=== PATIENT | male | born 1965 | race Caucasian/White ===

== ENCOUNTER → 2017-04-28 | Outpatient (CLI) | payer OTHER ==
[~2017-04-28] MED LIST: ASPI81TA28 PO; HYDR-5688 PO; LISI-787 PO; OPTIRAY 320 IV PRN; PRT/20 PO
--- NOTE | 2017-04-28 13:20 | DIAGNOSTIC IMAGING REPORT ---
CT NECK WITH INTRAVENOUS CONTRAST HISTORY: LEFT NECK SWELLING TECHNIQUE: Multiaxial CT images of the neck were performed following the use of intravenous contrast. COMPARISON STUDY: None. FINDINGS: The visualized brain parenchyma and orbits are unremarkable. The pterygopalatine fossa and parapharyngeal fat spaces are maintained. Motion artifact at the oropharynx results in nondiagnostic evaluation for a mucosal lesion. There is irregularity/deformity within the supraglottic soft tissues without definite mass. This is best seen on images 181 through 200. This may be transient or related to swallowing. The trachea is midline and is patent. The major cervical vessels are widely patent. Multiple surgical clips within the right submandibular location with resection of the right submandibular gland. A few prominent left submental lymph nodes with the largest measuring 7 mm. No enlarged cervical lymph nodes. No masses within the left side of the neck. Prevertebral soft tissues are normal in thickness. The epiglottis is not well visualized due to the motion artifact. The lungs are clear. No suspicious lytic or blastic osseous lesions. Paranasal sinuses and mastoid air cells are clear. The parotid glands are nearly symmetric. The thyroid gland enhances normally. Normal left submandibular gland. IMPRESSION: 1. No significant soft tissue swelling within the neck. 2. Postoperative changes within the right submandibular location with resection of the right submandibular gland. 3. Prominent submental lymph node measuring 7 mm. 4. Motion artifact at the oropharynx resulting in suboptimal evaluation. There is also irregularity/deformity of the supraglottic soft tissues without definite mass. This may be related to swallowing during the examination. Electronically signed by: Oren Shaw M.D. 04/28/2017 1:19 PM Dictated Date/Time: 04/28/2017 12:34 PM
== END | disposition home or self-care (01) ==
LOC: C.CTS 12:06
PROVIDERS: ATTEND Dentist Oral and Maxillofacial Pathology
DX: R22.1 Localized swelling, mass and lump, neck (principal)